=== PATIENT | male | born 1950 | race Caucasian/White ===

== ENCOUNTER 2018-05-14 10:34 | Emergency (ER) | payer SELFPAY ==
[2018-05-14 10:42] VITALS: BP 141/99
--- NOTE | 2018-05-14 11:01 | EDPHY ---
H & P Time Seen by Provider: 05/14/18 10:44 HPI/ROS: CHIEF COMPLAINT: Possible infected sebaceous cyst HISTORY OF PRESENT ILLNESS: 67-year-old immunocompetent male with no history of cutaneous MRSA, history of left posterior neck sebaceous cyst complaining of increased swelling erythema over the past 2 days. No drainage. No headache. No nausea or vomiting. Tetanus up-to-date. PRIMARY CARE PROVIDER: Dr. Rickie Romero REVIEW OF SYSTEMS: 10 systems reviewed and are negative with exception of illness mentioned in the history of present illness PHYSICAL EXAM (Prior to examination, patient consented to physical exam, hands were washed and my usual and customary physical exam procedures followed) 1) GENERAL: Well-developed, well-nourished, alert and oriented. Appears to be in no acute distress. 2) HEAD: Normocephalic 3) HEENT: sclera anicteric 4) LUNGS: Breathing comfortably. 5) SKIN: Left posterior neck patient has a 3 cm x 2 cm area of erythema, induration, tenderness and fluctuance with no drainage. Smoking Status: Never smoked Constitutional: Initial Vital Signs Temperature (C) 36.9 C 05/14/18 10:40 Heart Rate 77 05/14/18 10:40 Respiratory Rate 16 05/14/18 10:40 Blood Pressure 141/99 H 05/14/18 10:40 O2 Sat (%) 96 05/14/18 10:40 O2 Delivery Mode Room Air Allergies/Adverse Reactions: No Known Allergies Allergy (Unverified 05/14/18 10:40) Home Medications: Medication Instructions Recorded Cephalexin [Keflex] 500 mg PO TID 7 Days cap 05/14/18 MDM/Departure - MDM Procedures: Procedure: Incision and drainage of infected sebaceous cyst The patient's abscess was located on the left posterior neck. Indications risks benefits discussed with patient, I obtained verbal consent from the patient to drain the abscess who was informed about the possibility of bleeding and pain. The abscess was incised with a scalpel and a moderate amount of purulent drainage was expressed. I irrigated the wound and placed some packing. The patient tolerated the procedure well. The procedure was performed by myself. ED Course/Re-evaluation: Recommend 2 day recheck either in the ER with primary care provider. The area has been incised and drained and he is started on Keflex monotherapy as he has no history of cutaneous MRSA. Usual and customary wound precautions instructions provided. He feels comfortable being discharged. Care of patient under supervision of secondary supervising physician Dr Camargo . - Depart Disposition: Home, Routine, Self-Care Clinical Impression: Infected sebaceous cyst of skin Condition: Good Instructions: Cyst (ED), Abscess (ED) Additional Instructions: Return to the ER if you develop redness, swelling, discharge, warmth to the wound, or any other symptoms that concern you. Prescriptions: Cephalexin [Keflex] 500 mg PO TID 7 Days cap Referrals: George Romero MD [Primary Care Provider] - 1-2 days without fail
== END 2018-05-14 11:25 | disposition home or self-care (01) ==
PROC: 0H91XZZ Drainage of Face Skin, External Approach (ICD-10-PCS; principal; 2018-05-14)
DX: L72.3 Sebaceous cyst (principal)